=== PATIENT | male | born 1970 | race Caucasian/White ===

== ENCOUNTER 2020-11-19 14:06 | Outpatient (CLI) | payer OTHER | END 2020-11-19 15:00 | disposition home or self-care (01) | LOC: LAB 14:06 | PROVIDERS: ATTEND General Practice | DX: Z20.828 Contact with and (suspected) exposure to other viral communicable diseases (principal) ==

== ENCOUNTER 2021-02-04 11:17 | Outpatient (CLI) | payer OTHER | END 2021-02-04 12:35 | disposition home or self-care (01) | LOC: OFIC 805 11:17 | PROVIDERS: ATTEND Otolaryngology Otology & Neurotology | DX: H69.82 Other specified disorders of Eustachian tube, left ear (principal); H93.8X2 Other specified disorders of left ear ==

== ENCOUNTER 2021-11-14 11:00 | Outpatient (CLI) | payer OTHER | END 2021-11-14 11:15 | disposition home or self-care (01) | LOC: PPH VACUNA 11:00 | PROVIDERS: ATTEND Emergency Medicine Pediatric Emergency Medicine | DX: Z23 Encounter for immunization (principal) ==

== ENCOUNTER 2022-05-26 11:40 | Outpatient (CLI) | payer OTHER | END 2022-05-26 11:55 | disposition home or self-care (01) | LOC: PPH VACUNA 11:40 | PROVIDERS: ATTEND Emergency Medicine Pediatric Emergency Medicine | DX: Z23 Encounter for immunization (principal) ==